=== PATIENT | male | born 1950 | race Caucasian/White ===

== ENCOUNTER → 2018-02-15 | Outpatient (CLI) | payer MEDICARE ==
[~2018-02-15] MED LIST: ASPI81CH PO; Advil200 M1; Ativan1 MG SL; Depo-Testos200 MG/ML; FIBE4P; FISH1000; HYDCOR1TO; Hydrocodone-Ap1 EA23; MULVITMIND; NAPR500; OMEP20ER PO; RECTICARE30 GM; UBID10; VALA500
== END ==
LOC: LAB SHORT 13:56 → PLD 13:56
DX: L57.0 Actinic keratosis (principal)
CPT/HCPCS: 88305

== ENCOUNTER 2018-10-01 13:28 | Day surgery (SDC) | payer MEDICARE ==
[~2018-10-01] VITALS: Ht 172.7 cm; Wt 87.3 kg
[~2018-10-01 13:28] MED LIST changes: +Aspirin EC81 MG PO; +BENEFIBER152 GM PO; +Depo-Testos200 MG/ML IM; +NAPR220 PO; +Omeprazole20 M1 PO; +VALA500 PO
[2018-10-01] MEDS ORDERED: TRAZ50 PO (14:22)
[2018-10-01] MEDS ORDERED: ACET120S PR (14:23)
== END 2018-10-01 16:28 | disposition home or self-care (01) ==
LOC: ORSCSDS 13:28
PROVIDERS: Internal Medicine Gastroenterology
PROC: 0DB58ZX Excision of Esophagus, Via Natural or Artificial Opening Endoscopic, Diagnostic (ICD-10-PCS; principal; 2018-10-01 14:45)
DX: K22.70 Barrett's esophagus without dysplasia (principal); K22.2 Esophageal obstruction; K44.9 Diaphragmatic hernia without obstruction or gangrene; I10 Essential (primary) hypertension; Z87.891 Personal history of nicotine dependence; Z79.82 Long term (current) use of aspirin; Z79.899 Other long term (current) drug therapy
CPT/HCPCS: 88305; J7120

== ENCOUNTER → 2019-03-27 | Outpatient (CLI) | payer MEDICARE ==
[~2019-03-27] MED LIST changes: +ACET120S PR; +TRAZ50 PO
[2019-03-27 11:34] LABS: BASOPHILS ABSOLUTE AUTO 0.03 K/mm3 (0.00-0.23); BASOPHILS PERCENT AUTO 0 % (0-2); EOSINOPHILS PERCENT AUTO 2 % (0-6); Hematocrit 47.9 % (37.0-53.0); Hemoglobin 16.7 g/dL (13.5-17.5); IMMATURE GRAN ABSOLUTE AUTO 0.02 K/mm3 (0.00-0.10); IMMATURE GRAN PERCENT AUTO 0 % (0-1); LYMPHOCYTES ABSOLUTE AUTO 1.73 K/mm3 (0.84-5.20); LYMPHOCYTES PERCENT AUTO 26 % (21-46); MONOCYTES ABSOLUTE AUTO 0.85 K/mm3 (0.16-1.47); MONOCYTES PERCENT AUTO 13 % (4-13); Mean Corpuscular HGB 32.2 pg (26.0-34.0); Mean Corpuscular HGB Conc 34.9 g/dL (31.5-36.5); Mean Corpuscular Volume 92 fL (80-100); NEUTROPHILS ABSOLUTE AUTO 3.96 K/mm3 (1.96-9.15); NEUTROPHILS PERCENT AUTO 59 % (41-73); Platelet Count 330 K/mm3 (150-400); RDW Standard Deviation 51.2 fL (35.1-46.3); Red Blood Cell Count 5.19 M/mm3 (4.30-5.90); White Blood Cell Count 6.69 K/mm3 (4.00-11.30)
[2019-03-27 11:46] LABS: Anion Gap 8 mmol/L (6-16); Blood Urea Nitrogen 18 mg/dL (8-24); Bun/Creatinine Ratio 16.1 (12.0-20.0); CO2, Blood 26 mmol/L (21-32); Calcium, Blood 8.6 mg/dL (8.5-10.1); Chloride, Blood 102 mmol/L (98-108); Creatinine, Blood 1.12 mg/dL (0.60-1.20); Glomerular Filtration Rate >60 (60-); Glucose, Blood 103 mg/dL (70-99); Potassium, Blood 4.3 mmol/L (3.5-5.5); Sodium, Blood 136 mmol/L (136-145)
[2019-03-27 11:47] LABS: Troponin I <0.017 ng/mL (0.000-0.040)
== END | disposition home or self-care (01) ==
LOC: LAB SHORT 11:18 → LAB EV 11:18
PROVIDERS: Family Medicine
DX: R07.9 Chest pain, unspecified (principal); R53.83 Other fatigue
CPT/HCPCS: 80048; 84443; 84484; 85025

== ENCOUNTER 2020-11-30 12:05 | Day surgery (SDC) | payer OTHER ==
[~2020-11-30] VITALS: Ht 172.7 cm; Wt 81.3 kg
--- NOTE | 2020-11-30 14:00 | NUR ---
11/30/20 1400 Suad Dior PT CARE GIVEN OVER TO RN FLAKO VIDAL TO ASSUME CARE IN ENDO AND POST OP.
== END 2020-11-30 14:45 | disposition home or self-care (01) ==
LOC: ORSCSDS 12:05
DX: Z12.11 Encounter for screening for malignant neoplasm of colon (principal); Z80.0 Family history of malignant neoplasm of digestive organs; Z86.010 Personal history of colon polyps; D12.0 Benign neoplasm of cecum; K63.5 Polyp of colon; K57.30 Diverticulosis of large intestine without perforation or abscess without bleeding; Z86.73 Personal history of transient ischemic attack (TIA), and cerebral infarction without residual deficits; Z87.891 Personal history of nicotine dependence; K22.70 Barrett's esophagus without dysplasia; Z79.82 Long term (current) use of aspirin; Z79.899 Other long term (current) drug therapy
CPT/HCPCS: J2704; J7120

== ENCOUNTER → 2021-06-28 | Outpatient (CLI) | payer OTHER ==
[2021-06-29 16:31] LABS: CORONAVIRUS (COVID19) CSH-NRL Negative (Negative)
== END ==
LOC: LAB SHORT 08:49 → LAB 08:49
PROVIDERS: Physician Assistant
DX: J06.9 Acute upper respiratory infection, unspecified (principal); Z20.822 Contact with and (suspected) exposure to COVID-19; Z88.5 Allergy status to narcotic agent
CPT/HCPCS: U0003

== ENCOUNTER 2022-04-16 13:22 | Observation (INO) | payer OTHER | END 2022-04-17 14:04 | disposition home or self-care (01) | LOC: ER 13:22 → MEDS 20:17 → PCU 04-17 00:44 | PROVIDERS: ADMIT Internal Medicine | DX: I47.2 Ventricular tachycardia (principal); E29.1 Testicular hypofunction; E78.5 Hyperlipidemia, unspecified; K21.9 Gastro-esophageal reflux disease without esophagitis; Z87.891 Personal history of nicotine dependence; Z88.8 Allergy status to other drugs, medicaments and biological substances; Z88.5 Allergy status to narcotic agent; Z79.82 Long term (current) use of aspirin; Z79.899 Other long term (current) drug therapy ==

== ENCOUNTER 2022-08-06 08:28 | Emergency (ER) | payer OTHER ==
[~2022-08-06] VITALS: Ht 172.7 cm; Wt 81.7 kg
[~2022-08-06 08:28] MED LIST changes: +FISH OIL 1,2001 EAC4 PO; +MELO7.5 PO; +METO50ER PO
== END 2022-08-06 11:09 | disposition home or self-care (01) ==
LOC: ER 08:28
DX: U07.1 COVID-19 (principal); Z88.5 Allergy status to narcotic agent; Z88.8 Allergy status to other drugs, medicaments and biological substances; Z79.899 Other long term (current) drug therapy; Z79.82 Long term (current) use of aspirin; Z87.891 Personal history of nicotine dependence
CPT/HCPCS: 71045; 94640; 94664

== ENCOUNTER → 2023-03-13 | Outpatient (CLI) | payer OTHER | LOC: LAB SHORT 14:46 → PLD 14:46 | DX: C44.612 Basal cell carcinoma of skin of right upper limb, including shoulder (principal) | CPT/HCPCS: 88305 ==

== ENCOUNTER 2023-06-12 06:55 | Day surgery (SDC) | payer OTHER ==
[~2023-06-12] VITALS: Ht 172.7 cm; Wt 79.4 kg
[~2023-06-12 06:55] MED LIST changes: +B-COMPLEX WITH1 EAC2 PO; +COENZYME Q-10200 M1 PO; +Flonase 0.05% N16 GM; +[UNRECOGNIZED DRUG - OTHER]
[2023-06-12 07:57] LABS: BASOPHILS ABSOLUTE AUTO 0.02 K/mm3 (0.00-0.23); BASOPHILS PERCENT AUTO 0 % (0-2); EOSINOPHILS ABSOLUTE AUTO 0.18 K/mm3 (0.00-0.68); EOSINOPHILS PERCENT AUTO 3 % (0-6); Hematocrit 37.2 % (37.0-53.0); Hemoglobin 13.1 g/dL (13.5-17.5); IMMATURE GRAN ABSOLUTE AUTO 0.02 K/mm3 (0.00-0.10); IMMATURE GRAN PERCENT AUTO 0 % (0-1); LYMPHOCYTES ABSOLUTE AUTO 1.63 K/mm3 (0.84-5.20); LYMPHOCYTES PERCENT AUTO 26 % (21-46); MONOCYTES ABSOLUTE AUTO 0.79 K/mm3 (0.16-1.47); MONOCYTES PERCENT AUTO 13 % (4-13); Mean Corpuscular HGB 33.6 pg (26.0-34.0); Mean Corpuscular HGB Conc 35.2 g/dL (31.5-36.5); Mean Corpuscular Volume 95 fL (80-100); Mean Platelet Volume 9.6 fL (9.1-12.4); NEUTROPHILS ABSOLUTE AUTO 3.65 K/mm3 (1.96-9.15); NEUTROPHILS PERCENT AUTO 58 % (41-73); Platelet Count 289 K/mm3 (150-400); RDW Coefficient Variation 14.6 % (11.7-14.2); RDW Standard Deviation 50.4 fL (35.1-46.3); White Blood Cell Count 6.29 K/mm3 (4.00-11.30)
[2023-06-12 08:12] LABS: Bun/Creatinine Ratio 16.3 (12.0-20.0); Calcium, Blood 8.8 mg/dL (8.5-10.1); Creatinine, Blood 0.92 mg/dL (0.60-1.20); Potassium, Blood 3.8 mmol/L (3.5-5.5)
[2023-06-12 08:14] LABS: International Normalized Ratio 0.96; Prothrombin Time Results 10.1 Sec (9.7-11.5)
[2023-06-12 10:11] VITALS: BP 128/77
[2023-06-12 10:16] VITALS: BP 120/75
--- NOTE | 2023-06-12 10:17 | NUR ---
PT BACK TO RECOVERY ROOM AFTER PROCEDURE VIA RECLINER. AWAKE AND ALERT, STATES FINGERS OF RIGHT HAND ARE FEELING NUMB. RIGHT FINGERS ALSO APPEAR PURPLE IN COLOR, COLD TO THE TOUCH. APPROX 8CC'S AIR REMOVED FROM RADIAL BAND, NO BLEEDING NOTED.
[2023-06-12 10:30] VITALS: BP 105/66
[2023-06-12 10:45] VITALS: BP 119/76
--- NOTE | 2023-06-12 10:54 | NUR ---
DR MALONEY AT BEDSIDE TO UPDATE PT AND FAMILY WITH ANGIOGRAM RESULTS.
[2023-06-12 11:00] VITALS: BP 123/81
--- NOTE | 2023-06-12 11:20 | NUR ---
ALL AIR HAS BEEN REMOVED FROM ZEPHYR BAND ON RIGHT RADIAL SITE. NO ACTIVE BLEEDING OR SWELLING NOTED AT SITE. VSS, CALL LIGHT IN REACH. PT CONTINUES TO VISIT WITH FAMILY MEMBERS.
[2023-06-12 11:30] VITALS: BP 126/76
--- NOTE | 2023-06-12 12:09 | NUR ---
PT DRESSED, PT STEADY ON FEET. NO BLEEDING OR SWELLING NOTED WITH TR BAND DEFLATED. TR BAND REMOVED AND DOT CLOTH PLACED. IV D/C CATHETER INTACT. PT VERBALIZE D/C INSTRUCTIONS. GIVEN FOLDER WITH WRITTEN INSTRUCTIONS. PT FRIENDS ALSO VERBALIZE D/C INSTRUCTIONS.
== END 2023-06-12 12:15 | disposition home or self-care (01) ==
LOC: MHTC 06:55
PROVIDERS: Internal Medicine Cardiovascular Disease
DX: R07.89 Other chest pain (principal); R00.2 Palpitations; R06.09 Other forms of dyspnea; I47.29 Other ventricular tachycardia; R53.83 Other fatigue; E78.5 Hyperlipidemia, unspecified; I10 Essential (primary) hypertension; Z88.8 Allergy status to other drugs, medicaments and biological substances; Z88.5 Allergy status to narcotic agent; Z87.891 Personal history of nicotine dependence
CPT/HCPCS: 76937; 80048; 85025; 85347; 85610; 93458; 93571; 99152; 99153; C1769; C1887; C1894; J1644; J2250; J3010; J7030; J7050; Q9967

== ENCOUNTER 2023-08-10 02:29 | Day surgery (SDC) | payer OTHER ==
[2023-08-10 10:20] VITALS: BP 129/79
[2023-08-10] MEDS ORDERED: FISH OIL 1,0001 EA10 PO (10:22)
[2023-08-10] MEDS ORDERED: GUAI600T33 PO (10:23)
[2023-08-10 10:45] VITALS: BP 140/76
--- NOTE | 2023-08-10 11:24 | NUR ---
PT STAYED FOR 45 MINUTES POST INJECTION. INJECTION SITE FREE OF ANY SIGNS OF IRRITATION/ALLERGY. PT DOES REPORT AN ACHING SENSATION DOWN HIS FOREARM INTO HIS HANDS. PT UNSURE IF IT IS RELATED TO INJECTION OR HELPING HIS TRANSFER AT HOME. PT ADVISED TO KEEP AN EYE ON IT AND IF IT DOES NOT GO AWAY TO NOTIFY HIS
== END 2023-08-10 10:45 | disposition home or self-care (01) ==
LOC: ATC 02:29
DX: I25.10 Atherosclerotic heart disease of native coronary artery without angina pectoris (principal); E78.5 Hyperlipidemia, unspecified; I10 Essential (primary) hypertension; Z87.891 Personal history of nicotine dependence; Z88.8 Allergy status to other drugs, medicaments and biological substances; Z88.5 Allergy status to narcotic agent
CPT/HCPCS: 96372

== ENCOUNTER 2024-02-15 06:27 | Day surgery (SDC) | payer OTHER ==
[~2024-02-15] VITALS: Ht 172.7 cm; Wt 80.9 kg
[2024-02-15] VITALS (10 sets, daily range): BP systolic 107–158; BP diastolic 71–115
[~2024-02-15 06:27] MED LIST changes: +FISH OIL 1,0001 EA10 PO; +GUAI600T33 PO; +Lactated Ringer's 1,000 ML IV SCH; +Testosterone5 GM
[2024-02-15] MEDS ORDERED: propofoL 20 ML IV ONE (07:24)
[2024-02-15] MEDS ORDERED: Benzocaine Oral Spray 0.5ML UD ONE (07:24)
--- NOTE | 2024-02-15 07:36 | NUR ---
Ambulatory in Day Surgery. History, Chart, Medications and Allergies reviewed before start of procedure. Lungs clear T/O to Auscultation. Patient confirms NPO status and agrees with scheduled surgery. Patient States Post-Procedure ride home has been arranged.
--- NOTE | 2024-02-15 07:45 | NUR ---
02/15/24 0745 Candido Vazquez HISTORY, CHART, MEDICATIONS AND ALLERGIES REVIEWED BEFORE START OF PROCEDURE. PATIENT CONFIRMS NPO STATUS AND AGREES WITH SCHEDULED PROCEDURE. 3-LEAD EKG REVIEWED WITH PHYSICIAN PRIOR TO START OF PROCEDURE. MONITOR INTACT WITH CONTINUOUS PULSE OXIMETRY,CAPNOGRAPHY, 3-LEAD EKG, INTERMITTENT BP. SUPPLEMENTAL O2 TO BE TITRATED THROUGHOUT PROCEDURE TO MAINTAIN O2 SATURATION ABOVE 90%. PATIENT DETERMINED TO BE ASA APPROPRIATE FOR PROPOFOL SEDATION PRIOR TO START OF PROCEDURE BY DR. CAMARGO.
--- NOTE | 2024-02-15 07:58 | NUR ---
PT TO DAY SURGERY STEP DOWN FROM EGD; BEDSIDE REPORT RECEIVED. PT IS SLEEPING, BUT RESPONDS TO VOICE AND ABLE TO MOVE SELF IN BED. VSS. PT HAS NO COMPLAINTS AT THIS TIME.
--- NOTE | 2024-02-15 08:20 | NUR ---
Discharge instructions reviewed with patient. Patient verbalizes understanding. Copy given to patient to take home. Patient States Post-Procedure ride home has been arranged.
--- NOTE | 2024-02-15 08:28 | NUR ---
Patient up to Ambulate independently. Gait steady. Discharged via wheelchair to private car for ride home.
== END 2024-02-15 08:29 | disposition home or self-care (01) ==
LOC: ORSCMMR 06:27 → ORD 07:30 → ORSCMMR 08:29
PROVIDERS: Internal Medicine Gastroenterology
PROC: 0DB48ZX Excision of Esophagogastric Junction, Via Natural or Artificial Opening Endoscopic, Diagnostic (ICD-10-PCS; principal; 2024-02-15 07:30)
PROC: 0DB58ZX Excision of Esophagus, Via Natural or Artificial Opening Endoscopic, Diagnostic (ICD-10-PCS; principal; 2024-02-15 07:30)
DX: K22.70 Barrett's esophagus without dysplasia (principal); E78.00 Pure hypercholesterolemia, unspecified; I25.2 Old myocardial infarction; Z79.82 Long term (current) use of aspirin; Z79.899 Other long term (current) drug therapy
CPT/HCPCS: 88305; A9270; J2704; J7120

== ENCOUNTER 2024-05-23 08:51 | Day surgery (SDC) | payer OTHER ==
[~2024-05-23] VITALS: Ht 172.7 cm; Wt 76.7 kg
[~2024-05-23 08:51] MED LIST changes: +FentaNYL Citrate 50 MCG/ML 2 ML Injection ONE; +Lactated Ringer's 1,000 ML IV ONE; -Lactated Ringer's 1,000 ML IV SCH; +Midazolam HCl 1MG / ML 2ML Vial ONE
[2024-05-23] MEDS ORDERED: Lactated Ringer's 1,000 ML IV ONE (09:17)
--- NOTE | 2024-05-23 09:19 | NUR ---
05/23/24 0919 Alberta Vickers PT COMFORTABLE IN BED. NO QUESTIONS OR CONCERNS
[2024-05-23] MEDS ORDERED: CeFAZolin Sodium 2,000 MG VIAL ONE (09:20)
[2024-05-23] MEDS ORDERED: NS 50 ML IV ONE (09:20)
[2024-05-23] MEDS ORDERED: Metoprolol Tartrate 0 ML IV ONE (09:43)
[2024-05-23] MEDS ORDERED: Lidocaine 1%-Epineph 1:100000 20 ML MDV ONE (10:07)
[2024-05-23] MEDS ORDERED: Bupivacaine 0.5% HCl 5 MG/ML 30MLVIAL ONE (10:07)
[2024-05-23] MEDS ORDERED: propofoL 40 ML IV ONE (10:09)
[2024-05-23] MEDS ORDERED: Dexamethasone Sod Phos 10 MG/ML 1ML VIAL ONE (10:20)
[2024-05-23] MEDS ORDERED: Ondansetron HCl 2 MG / ML 2ML Vial ONE (10:20)
[2024-05-23] MEDS ORDERED: SuccINYLCHOLINE Chloride 100 MG/5 ML 5MLSYR ONE (10:20)
[2024-05-23] MEDS ORDERED: Lidocaine HCl 2% 10 ML SDA ONE (10:26)
[2024-05-23] MEDS ORDERED: Glycopyrrolate 0.2 MG/ML 5ML VIAL ONE (10:32)
[2024-05-23] MEDS ORDERED: FentaNYL Citrate 50 MCG/ML 2 ML Injection ONE (11:40)
[2024-05-23] MEDS ORDERED: HYDROcodone 5-APAP 325 TAB ONE (11:41)
[2024-05-23] MEDS ORDERED: HYDROmorphone HCl/Pf 1MG SYR ONE (12:27)
--- NOTE | 2024-05-23 12:42 | NUR ---
05/23/24 1242 Carmen Kathie PATIENT REPORTS MINIMAL PAIN RELIEF FROM FENTANYL DOSES GIVEN PREVIOUSLY. PT DID RECEIVE 1 TABLET HYDROCODONE-ACETAMINOPHEN 5-325MG FROM RN JXP. PT REPORTS PAIN STILL AT 7/10 IN R WRIST/ARM. ADMINISTERED ONE DOSE OF DILAUDID 0.5MG IV X1 AT 1237. WILL MONITOR VSS AND MONITOR FOR PAIN IMPROVEMENT.
[2024-05-23 13:10] VITALS: BP 132/75
== END 2024-05-23 13:40 | disposition home or self-care (01) ==
LOC: ORSCSDS 08:51
PROVIDERS: Orthopaedic Surgery
PROC: 0RRS07Z Replacement of Right Carpometacarpal Joint with Autologous Tissue Substitute, Open Approach (ICD-10-PCS; principal; 2024-05-23 10:15)
DX: M18.11 Unilateral primary osteoarthritis of first carpometacarpal joint, right hand (principal); I10 Essential (primary) hypertension; I25.10 Atherosclerotic heart disease of native coronary artery without angina pectoris; E78.5 Hyperlipidemia, unspecified; Z87.891 Personal history of nicotine dependence; Z79.899 Other long term (current) drug therapy; Z79.82 Long term (current) use of aspirin
CPT/HCPCS: A9270; C1713; J0330; J0690; J1100; J1170; J2001; J2250; J2405; J2704; J3010; J7120